=== PATIENT | female | born 1945 | race Caucasian/White ===

== ENCOUNTER 2017-10-02 08:47 | Outpatient (CLI) | payer MEDICARE, BC | END 2017-10-02 08:48 | disposition home or self-care (01) | LOC: BICMAMMO 08:47 | PROVIDERS: ATTEND Internal Medicine | DX: Z12.31 Encounter for screening mammogram for malignant neoplasm of breast (principal) | CPT/HCPCS: 77063; 77067 ==

== ENCOUNTER 2018-03-03 12:20 | Outpatient (CLI) | payer MEDICARE, BC ==
--- NOTE | 2018-03-05 14:16 | EKG ---
Hook-up date: 2018-03-03 13:09:00 Duration: 23:58:00 Test Indications: Arrhythmia Medications: [id number] QRS complexes 65 Ventricular ectopics which represent <1 % of total QRS comp. 231 Supraventricular ectopics which represent <1 % of total QRS comp. * Paced QRS complexs which represent % of total QRS comp. * % of Time Classified as Noise VENTRICULAR ECTOPY 38 Isolated 0 Bigeminal Cycles 9 Couplets 1 Runs 3 Beats in Runs 3 Beats LONGEST at 166 BPM at 19:06:26 2018-03-03 3 Beats FASTEST at 166 BPM at 19:06:26 2018-03-03 SUPRAVENTRICULAR ECTOPY 135 Isolated 18 Couplets 10 Runs 53 Beats in Runs 17 Beats LONGEST at 124 BPM at 05:27:33 2018-03-04 6 Beats FASTEST at 182 BPM at 10:27:48 2018-03-04 HEART RATES 51 MIN at 05:27:47 2018-03-04 70 AVG 159 MAX at 19:06:29 2018-03-03 LONGEST RR 1.4320 secs at 17:04:08 2018-03-03 364 Tachycardia Beats * % of Tachycardia 9107 Bradycardia Beats 9 % of Bradycardia S-T LEVELS Channel 1 * mm at 03:22:81 -- * mm at 03:22:81 -- Rhythm: Normal Sinus Rhythm with Sinus Bradycardia and Sinus Tachycardia noted Ectopy: Occasional isolated PAC's and PVC's. Atrial Tachycardia and SVT noted with and without exe rtion. Rare PVC couplets and triplets Patient Events: Palpitations documented in patient diary on 03/03 @ 17:20 and 23:14 which correlated w ith PVC's followed by short runs of Atrial Tachycardia Heart Block: No evidence of heart block Confirmed by ANABELLE MAYBERRY, PATRICK ([id number]), managing editor RENATO COLEMAN ([id number]) on 03/05/2018 2:15:54 PM Referred By: Chaz Prieto MD Overread By: PATRICK MAYBERRY PA-C
== END 2018-03-03 12:21 | disposition home or self-care (01) ==
PROVIDERS: ATTEND Internal Medicine
DX: I49.9 Cardiac arrhythmia, unspecified (principal)
CPT/HCPCS: 93225; 93226

== ENCOUNTER 2018-05-20 14:33 | Outpatient (CLI) | payer MEDICARE, BC | END 2018-05-20 14:34 | disposition home or self-care (01) | LOC: BICRAD 14:33 | PROVIDERS: ATTEND Internal Medicine Rheumatology | DX: M25.551 Pain in right hip (principal); M16.0 Bilateral primary osteoarthritis of hip | CPT/HCPCS: 72170; 73523 ==

== ENCOUNTER 2019-02-17 09:52 | Outpatient (CLI) | payer MEDICARE, BC ==
--- NOTE | 2019-02-17 13:31 | MMO ---
Bilateral MAMMO Bilat Screen [facility]. CLINICAL HISTORY: Patient is 73 years old and is seen for screening. The patient has no family history of breast cancer. The patient has no personal history of cancer. VIEWS: The views performed were: bilateral craniocaudal with tomosynthesis and bilateral mediolateral oblique with tomosynthesis. FILMS COMPARED: The present examination has been compared to prior imaging studies performed at [facility] on 05/19/2014, 05/20/2015, 05/28/2016 and 10/02/2017. MAMMOGRAM FINDINGS: There are scattered fibroglandular densities. Benign calcifications are noted bilaterally. There are no suspicious masses, suspicious calcifications, or new areas of architectural distortion. IMPRESSION: THERE IS NO MAMMOGRAPHIC EVIDENCE OF MALIGNANCY. A ROUTINE FOLLOW-UP MAMMOGRAM IN 1 YEAR IS RECOMMENDED. THE RESULTS OF THIS EXAM WERE SENT TO THE PATIENT. ACR BI-RADS Category 2 - Benign finding MAMMOGRAPHY NOTE: 1. A negative mammogram report should not delay a biopsy if a dominant of clinically suspicious mass is present. 2. Approximately 10% to 15% of breast cancers are not detected by mammography. 3. Adenosis and dense breasts may obscure an underlying neoplasm.
== END 2019-02-17 09:53 | disposition home or self-care (01) ==
LOC: BICMAMMO 09:52
PROVIDERS: ATTEND Internal Medicine
DX: Z12.31 Encounter for screening mammogram for malignant neoplasm of breast (principal)
CPT/HCPCS: 77063; 77067

== ENCOUNTER 2020-02-22 10:50 | Outpatient (CLI) | payer MEDICARE, BC ==
--- NOTE | 2020-02-22 11:40 | MMO ---
Bilateral MAMMO Bilat Screen [facility]. CLINICAL HISTORY: Patient is 74 years old and is seen for screening. The patient has no family history of breast cancer. The patient has no personal history of cancer. VIEWS: The views performed were: bilateral craniocaudal with tomosynthesis and bilateral mediolateral oblique with tomosynthesis. FILMS COMPARED: The present examination has been compared to prior imaging studies performed at [facility] on 05/20/2015, 05/28/2016, 10/02/2017 and 02/17/2019. This study has been interpreted with the assistance of computer-aided detection. MAMMOGRAM FINDINGS: There are scattered fibroglandular densities. There are stable benign appearing calcifications seen in both breasts. There are also vascular calcifications. There are no suspicious masses, suspicious calcifications, or new areas of architectural distortion. IMPRESSION: THERE IS NO MAMMOGRAPHIC EVIDENCE OF MALIGNANCY. A ROUTINE FOLLOW-UP MAMMOGRAM IN 1 YEAR IS RECOMMENDED. THE RESULTS OF THIS EXAM WERE SENT TO THE PATIENT. ACR BI-RADS Category 2 - Benign finding MAMMOGRAPHY NOTE: 1. A negative mammogram report should not delay a biopsy if a dominant of clinically suspicious mass is present. 2. Approximately 10% to 15% of breast cancers are not detected by mammography. 3. Adenosis and dense breasts may obscure an underlying neoplasm. Reported by: LOLIS MATAMOROS MD Electonically Signed: [id number]
== END 2020-02-22 10:51 | disposition home or self-care (01) ==
LOC: BICMAMMO 10:50
PROVIDERS: ATTEND Internal Medicine
DX: Z12.31 Encounter for screening mammogram for malignant neoplasm of breast (principal)
CPT/HCPCS: 77063; 77067

== ENCOUNTER 2021-03-07 10:56 | Outpatient (CLI) | payer MEDICARE, BC | END 2021-03-07 10:57 | disposition home or self-care (01) | LOC: BICMAMMO 10:56 | PROVIDERS: ATTEND Internal Medicine | DX: Z12.31 Encounter for screening mammogram for malignant neoplasm of breast (principal) | CPT/HCPCS: 77063; 77067 ==

== ENCOUNTER 2022-05-17 13:40 | Outpatient (CLI) | payer MEDICARE, BC | END 2022-05-17 13:41 | disposition home or self-care (01) | LOC: BICMAMMO 13:40 | PROVIDERS: ATTEND Internal Medicine | DX: Z12.31 Encounter for screening mammogram for malignant neoplasm of breast (principal) | CPT/HCPCS: 77063; 77067 ==

== ENCOUNTER 2022-06-06 11:16 | Outpatient (CLI) | payer MEDICARE, BC ==
[2022-06-06 13:53] LABS: #Basophils 0.1 10x3/uL (0.0-0.2); #Eosinphils 0.2 10x3/uL (0.0-0.5); #Monocytes 0.6 10x3/uL (0.0-1.1); %Basophils 1.1 % (0.0-2.0); %Eosinophils 2.8 % (0.0-6.0); %Lymphocytes 21.7 % (18.0-47.0); %Monocytes 8.3 % (0.0-10.0); %Neutrophils 65.8 % (40.0-75.0); Mean Corpuscular HGB CONC 33.5 g/dL (32.0-36.0); Mean Corpuscular Hemoglobin 30.1 pg (27.0-33.0); Mean Corpuscular Volume 89.9 fl (81.6-98.3); Mean Platelet Volume 11.1 fl (7.4-10.4); Platelet Count 317 10x3/uL (150-450); RBC Distribution Width 13.4 % (11.5-14.5); Red Blood Cell (RBC) Count 4.65 10x6/uL (3.90-5.03); White Blood Cell (WBC) Count 7.6 10x3/uL (3.5-10.5)
[2022-06-06 14:16] LABS: Anion Gap 14 mmol/L (10-20); BUN (Urea Nitrogen) 15 mg/dL (9.8-20.1); Calc. Creatinine Clearance 0 mL/min (70-130); Calcium 9.4 mg/dL (7.8-10.44); Carbon Dioxide 29 mmol/L (23-31); Chloride 103 mmol/L (98-107); Estimated GFR 73; Glucose 114 mg/dL (83-110); Potassium 4.1 mmol/L (3.5-5.1); Sodium 142 mmol/L (136-145)
== END 2022-06-06 11:17 | disposition home or self-care (01) ==
LOC: LABBT 11:16
PROVIDERS: ATTEND Orthopaedic Surgery
DX: Z01.812 Encounter for preprocedural laboratory examination (principal); M16.11 Unilateral primary osteoarthritis, right hip; Z20.822 Contact with and (suspected) exposure to COVID-19
CPT/HCPCS: 80048; 85025; 85610; 87081; 87811

== ENCOUNTER 2022-06-11 05:41 | Inpatient (IN) | payer MEDICARE, BC ==
[2022-06-07 15:40] VITALS: BMI 22.6
[2022-06-11] MEDS ORDERED: Sodium Chloride 0.9% 100 ML ONE ×2 (05:58→06:51)
[2022-06-11] MEDS ORDERED: Tranexamic Acid 1,000 MG/10 ML VIAL ONE ×2 (05:58→08:43)
[2022-06-11] MEDS ORDERED: Vancomycin 1 GM/200 ML BAG ONE (05:58)
[2022-06-11] MEDS ORDERED: Propofol 1,000 MG/100 ML VIAL IV ONE (06:02)
[2022-06-11] MEDS ORDERED: Propofol 500 MG/50 ML VIAL ONE (06:02)
[2022-06-11] MEDS ORDERED: fentaNYL Citrate/PF 100 MCG/2 ML SYRINGE ONE (06:02)
[2022-06-11] MEDS ORDERED: Bupivacaine PF 0.5% 30 ML VIAL ONE (06:23)
[2022-06-11] MEDS ORDERED: CEFAZOLIN 2 GM VIAL ONE (06:51)
[2022-06-11] MEDS ORDERED: Fentanyl 100 MCG/2 ML VIAL SLOW IVP PRN (06:59)
[2022-06-11] MEDS ORDERED: Acetaminophen 325 MG TAB PO PRN (06:59)
[2022-06-11] MEDS ORDERED: Zolpidem Tartrate 5 MG TAB PO PRN (06:59)
[2022-06-11] MEDS ORDERED: diphenhydrAMINE 25 MG CAP PO PRN (06:59)
[2022-06-11] MEDS ORDERED: Ondansetron PF 4 MG/2 ML Vial IVP PRN (06:59)
[2022-06-11] MEDS ORDERED: Promethazine HCl 25 MG/ML VIAL IM PRN (06:59)
[2022-06-11] MEDS ORDERED: Dexmedetomidine 200 MCG/2 ML VIAL ONE (07:02)
[2022-06-11] MEDS ORDERED: Ropivacaine 0.5% HCl/PF (150 MG/30 ML VIAL) ONE ×2 (07:04→07:24)
[2022-06-11] MEDS ORDERED: PHENYLEPHRINE-NS 100 MCG/ML 10 ML SYRINGE ONE (07:06)
[2022-06-11] MEDS ORDERED: Dexamethasone 20 MG/5 ML VIAL ONE (07:06)
[2022-06-11] MEDS ORDERED: ePHEDrine 50 MG/ML VIAL ONE (07:06)
[2022-06-11] MEDS: Aspirin 81 mg Enteric Coated Tablet PO SCH ×2 (12:11→20:21)
[2022-06-11] MEDS: Sodium Chloride 0.9% 1,000 ML IV SCH ×2 (12:11→14:46)
[2022-06-11] MEDS: Atorvastatin Calcium 10 MG TAB PO SCH (12:23)
[2022-06-11] MEDS: CEFAZOLIN 2 GM in Sodium Chloride 0.9% 100 ML IVPB SCH ×2 (14:40→23:29)
[2022-06-11] MEDS: HYDROcodone/Acetaminophen 5/325 mg Tablet PO PRN ×3 (15:25→23:28)
[2022-06-12] MEDS: Sodium Chloride 0.9% 1,000 ML IV SCH ×2 (03:39→13:40)
[2022-06-12 05:21] LABS: Hemoglobin 10.8 g/dL (12.0-16.0); Mean Corpuscular HGB CONC 32.3 g/dL (32.0-36.0); Mean Corpuscular Hemoglobin 30.3 pg (27.0-31.0); Mean Corpuscular Volume 93.9 fL (78.0-98.0); Mean Platelet Volume 9.2 fL (7.4-10.4); Platelet Count 199 thou/uL (130-400); RBC Distribution Width 12.1 % (11.5-14.5); Red Blood Cell (RBC) Count 3.57 mill/uL (4.20-5.40); White Blood Cell (WBC) Count 19.4 thou/uL (4.8-10.8)
[2022-06-12] MEDS: HYDROcodone/Acetaminophen 5/325 mg Tablet PO PRN ×3 (05:54→16:35)
[2022-06-12] MEDS: Levothyroxine Sodium 125 MCG TAB PO SCH (05:55)
[2022-06-12] MEDS: Ferrous Gluconate 324 MG TAB PO SCH ×2 (08:52→16:35)
[2022-06-12] MEDS: Aspirin 81 mg Enteric Coated Tablet PO SCH ×2 (08:53→20:41)
[2022-06-12] MEDS: Senokot S 8.6-50 MG TAB PO SCH ×2 (08:53→20:41)
[2022-06-12] MEDS: Multivitamin W/ Minerals 1 TAB PO SCH (08:54)
[2022-06-12] MEDS: Atorvastatin Calcium 10 MG TAB PO SCH (12:19)
[2022-06-13] MEDS: HYDROcodone/Acetaminophen 5/325 mg Tablet PO PRN ×2 (01:08→05:16)
[2022-06-13] MEDS: Sodium Chloride 0.9% 1,000 ML IV SCH ×2 (01:10→09:06)
[2022-06-13] MEDS: Levothyroxine Sodium 125 MCG TAB PO SCH (05:17)
[2022-06-13 07:50] VITALS: BP 100/61; TEMP 98.4
[2022-06-13] MEDS: Aspirin 81 mg Enteric Coated Tablet PO SCH (09:06)
[2022-06-13] MEDS: Ferrous Gluconate 324 MG TAB PO SCH (09:06)
[2022-06-13] MEDS: Senokot S 8.6-50 MG TAB PO SCH (09:06)
[2022-06-13] MEDS: Multivitamin W/ Minerals 1 TAB PO SCH (09:06)
== END 2022-06-13 11:35 | disposition home or self-care (01) | DRG 470 ==
LOC: SDC 05:41 → INTOOBSV 11:26 → SURG B 11:26 → OBSVTOIN 06-12 07:40
PROVIDERS: ADMIT Orthopaedic Surgery; ATTEND Orthopaedic Surgery
PROC: 0SR902Z Replacement of Right Hip Joint with Metal on Polyethylene Synthetic Substitute, Open Approach (ICD-10-PCS; principal; 2022-06-11)
DX: M16.11 Unilateral primary osteoarthritis, right hip (principal); E78.5 Hyperlipidemia, unspecified; I10 Essential (primary) hypertension; E07.89 Other specified disorders of thyroid; Z90.710 Acquired absence of both cervix and uterus; Z98.890 Other specified postprocedural states; Z80.9 Family history of malignant neoplasm, unspecified; Z79.899 Other long term (current) drug therapy
CPT/HCPCS: 36415; 85027; C1776; J0690; J1100; J2704; J2795; J3370; J3490; S0020

== ENCOUNTER 2023-09-27 13:28 | Outpatient (CLI) | payer MEDICARE, BC | END 2023-09-27 13:29 | disposition home or self-care (01) | LOC: BICMAMMO 13:28 | PROVIDERS: ATTEND Internal Medicine | DX: Z12.31 Encounter for screening mammogram for malignant neoplasm of breast (principal) | CPT/HCPCS: 77063; 77067 ==